=== PATIENT | female | born 2000 | race Two or more races ===

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

== ENCOUNTER 2024-05-12 04:35 | Emergency (ER) | payer OTHER, MEDICAID ==
[~2024-05-12] VITALS: Ht 157.5 cm; Wt 52.2 kg
[2024-05-12 04:50] VITALS: BP 138/82; PULSE 77; RESP 14; TEMP 97.9; O2SAT 99
[2024-05-12] MEDS ORDERED: ACET500T58 PO (05:22)
--- NOTE | 2024-05-12 05:23 | ED.PDOC ---
Back pain HPI HPI Comments 23-YEAR-OLD FEMALE PRESENTS TO ER WITH COMPLAINTS OF BACK PAIN X3 DAYS. PATIENT REPORTS SHE STARTED EXPERIENCING UPPER THORACIC BACK PAIN THREE DAYS AGO S/P "LIFTING HEAVY OBJECTS AT WORK". DENIES ANY TRAUMA/FALLS. SHE RATES HER CURRENT PAIN A 6/10 TO UPPER THORACIC SPINE WITHOUT RADIATION. NOTES SHE'S BEEN TAKING IBUPROFEN FOR HER PAIN WITH SOME RELIEF. PATIENT PRESENTS TO ER AMBULATORY ON ARRIVAL, WITH STEADY GAIT, IN NO DISTRESS. DENIES FEVER ,N/V, NUMBNESS/TINGLING, SHORTNESS OF BREATH, CHEST PAIN, ABDOMINAL PAIN, CHANGES IN URINATION/BM OR ANY FURTHER SYMPTOMS/COMPLAINTS Chief Complaint: Back Pain Time Seen by MD: 05:07 Primary Care Provider: UNKNOWN Reviewed Notes: Nurses Notes, Medications, Allergies Allergies: Coded Allergies: NO KNOWN ALLERGIES (Unverified , 05/12/24) Information Source: Patient Mode of Arrival: Ambulatory Past Medical History PAST MEDICAL HISTORY: Denies Surgical History: Denies all surgeries BRAND ANALYST History: No Pertinent BRAND ANALYST History Family History Family History: Unknown Social History Smoker: Non-Smoker Alcohol: Denies ETOH Use Drugs: Denies Drug Use Lives In: Home Constitutional: denies: chills, diaphoresis, fatigue, fever, malaise, sweats, weakness, others EENTM: denies: blurred vision, double vision, ear bleeding, ear discharge, ear drainage, ear pain, ear ringing, eye pain, eye redness, hearing loss, mouth pain, mouth swelling, nasal discharge, nose bleeding, nose congestion, nose gee n, photophobia, tearing, throat pain, throat swelling, voice changes, others Respiratory: denies: cough, hemoptysis, orthopnea, SOB at rest, shortness of breath, SOB with excertion, stridor, wheezing, others Cardiovascular: denies: chest pain, dizzy spells, diaphoresis, Dyspnea on exertion, edema, irregular heart beat, left arm pain, lightheadedness, palpitations, PND, syncope, others Gastrointestinal: denies: abdomen distended, abdominal pain, blood streaked bowels, constipated, diarrhea, dysphagia, difficulty swallowing, hematemesis, melena, nausea, poor appetite, poor fluid intake, rectal bleeding, rectal pain, vomiting, others Genitourinary: denies: abnormal vagina bleeding, burning, dyspareunia, dysuria, flank pain, frequency, hematuria, incontinence, pain, , vagina discharge, urgency, others Neurological: denies: dizziness, fainting, headache, left sided numbness, left sided weakness, numbness, paresthesia, pre-existing deficit, right sided numbness, right sided weakness, seizure, speech problems, tingling, tremors, weakness, others Musculoskeletal: reports: others ( STATED IN HPI) Integumetry: denies: bruises, change in color, change in hair/nails, dryness, laceration, lesions, lumps, rash, wounds, others Allergic/Immunocompromised: denies: Difficulty Healing, Frequent Infections, Hives, Itching, others Hematologic/Lymphatic: denies: anemia, blood clots, easy bleeding, easy bruising, swollen glands, others Endocrine: denies: excessive hunger, excessive sweating, excessive thirst, excessive urination, flushing, intolerance to cold, intolerance to heat, unexplained weight gain, unexplained weight loss, others Psychiatric: denies: anxiety, bipolar disorder, depression, hopeless, panic disorder, schizophrenia, sleepless, suicidal, others Physical Exam General Appearance: No Apparent Distress HEENT: PERRL/EOMI Neck: Full Range of Motion, Non-Tender, Normal Respiratory: Chest Non-Tender, Lungs Clear, No Accessory Muscle Use, No Respiratory Distress, Normal Breath Sounds Cardiovascular: No Murmur, No Gallop, Regular Rate/Rhythm Breast Exam: Deferred Gastrointestinal: Non Tender, No Pulsatile Mass, Soft Genitalia: Deferred Pelvic: Deferred Rectal: Deferred Extremities: No calf tenderness, Normal capillary refill, Normal range of motion Musculoskeletal : Extremity Location: Back (SLIGHT TTP TO UPPER THORACIC PARASPINALS NOTED. NO TENDERNESS TO SPINE NOTED. GAIT INTACT WITHOUT ABNORMALITY) Neurologic: Alert, release of information specialist II-XII nml as Tested, No Motor Deficits, Normal Affect, Normal Mood, No Sensory Deficits Cerebellar Function: Normal Reflexes: Normal Skin: Dry, Normal Color, Warm Lymphatic: No Adenopathy Was a procedure done? Was a procedure done?: No Sedation Sedation?: No Back Pain Differential Dx Differential Diagnosis: AAA, Fracture, Other (NEUROVASCULAR INJURY) X-Ray, Labs, Meds, VS Vital Signs Date Time Temp Pulse Resp B/P (MAP) Pulse Ox O2 Delivery O2 Flow Rate FiO2 05/12/24 04:50 97.9 77 14 138/82 (100) 99 97.9 PATIENT IN NO DISTRESS DURING ER VISIT/PRIOR TO DISCHARGE ADVISED ON REST/NO STRENUOUS ACTIVITY WORKMAN'S COMP PAPERWORK FILLED OUT ADVISED TO FOLLOW UP WITH PCP AND WORKMAN'S COMP PCP IN 1-2 DAYS PATIENT VERBALIZED UNDERSTANDING AND AGREEABLE WITH CURRENT PLAN OF CARE ADVISED TO RETURN TO ER IMMEDIATELY IF SYMPTOMS WORSEN Time of 1ST Reevaluation: 05:04 Reevaluation 1ST: N/A Patient Education/Counseling: Diagnosis, Treatment, Prognosis, Need For Follow Up Family Education/Counseling: No Family Present Departure 1 Departure Time of Disposition: 05:20 Impression: Primary Impression: Strain of thoracic spine Disposition: 01 HOME / SELF CARE / HOMELESS Condition: Stable e-Prescriptions Acetaminophen (Acetaminophen) 500 Mg Tab 500 MG PO Q4HPRN, #30 TAB 0 Refills Prov: TRUDY HURTADO 05/12/24 Discharged With: Self Critical Care Note Critical Care Time?: No Stability Stability form required: No Heart Score Heart Score: Heart Score Response (Comments) Value History N/A 0 EKG N/A 0 Age N/A 0 Risk Factors N/A 0 Troponin N/A 0 Total 0 TRUDY HURTADO May 12, 2024 05:23
== END 2024-05-12 05:46 | disposition home or self-care (01) ==
LOC: ER 04:35
DX: S29.012A Strain of muscle and tendon of back wall of thorax, initial encounter (principal); X50.1XXA Overexertion from prolonged static or awkward postures, initial encounter; Y93.89 Activity, other specified; Y92.89 Other specified places as the place of occurrence of the external cause; Y99.0 Civilian activity done for income or pay

== ENCOUNTER 2024-05-23 23:50 | Emergency (ER) | payer OTHER, MEDICAID ==
[~2024-05-23] VITALS: Ht 157.5 cm; Wt 52.7 kg
[~2024-05-23 23:50] MED LIST: ACET500T58 PO
[2024-05-24 00:27] VITALS: BP 121/81; PULSE 77; RESP 16; TEMP 99; O2SAT 99
--- NOTE | 2024-05-24 01:06 | DVH ---
EXAM: CT THORACIC SPINE WO CONTRAS HISTORY: injury/pain COMPARISON: None CTDIvol 10.34 mGy, DLP 399.54 mGy*cm. TECHNIQUE: Multiple axial CT images of the spine were obtained using bone algorithm. Axial and coron al reformatting was done. Bone and soft tissue windows were reviewed. FINDINGS: No CT evidence of definite acute fracture, spinal dislocation, or significant appearing acute subluxa tion is seen. The visualized paraspinal soft tissues are grossly unremarkable. Spina bifida occulta of the T11 spinous process. IMPRESSION: 1. No definite CT evidence of acute fracture or dislocation of the bony thoracic spine.
--- NOTE | 2024-05-24 01:21 | ED.PDOC ---
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 WAS SEEN HERE ON MAY 12 FOR THE SAME COMPLAINT. STATES THAT PAIN IS GETTING WORSE. REPORTS NECK AND UPPER BACK PAIN UNRELIEVED BY IBUPROFEN AND ACETAMINOPHEN DENIES NUMBNESS, WEAKNESS, SADDLE ANESTHESIA, LOSS OF BOWEL OR BLADDER CONTROL. Chief Complaint: Back Pain Time Seen by MD: 23:56 Primary Care Provider: UNKNOWN Reviewed Notes: Nurses Notes, Medications, Allergies Allergies: Coded Allergies: NO KNOWN ALLERGIES (Unverified , 05/12/24) Home Meds Active Scripts Acetaminophen (Acetaminophen) 500 Mg Tab, 500 MG PO Q4HPRN, #30 TAB 0 Refills Prov:TRUDY HURTADO 05/12/24 Information Source: Patient Mode of Arrival: Ambulatory Past Medical History PAST MEDICAL HISTORY: Denies Surgical History: Denies all surgeries BLANKET FOLDER History: No Pertinent BLANKET FOLDER History Family History Family History: Unknown Social History Smoker: Non-Smoker Alcohol: Denies ETOH Use Drugs: Denies Drug Use Lives In: Home Constitutional: denies: chills, diaphoresis, fatigue, fever, malaise, sweats, weakness, others EENTM: denies: blurred vision, double vision, ear bleeding, ear discharge, ear drainage, ear pain, ear ringing, eye pain, eye redness, hearing loss, mouth pain, mouth swelling, nasal discharge, nose bleeding, nose congestion, nose pain, photophobia, tearing, throat pain, throat swelling, voice changes, others Respiratory: denies: cough, hemoptysis, orthopnea, SOB at rest, shortness of breath, SOB with excertion, stridor, wheezing, others Cardiovascular: denies: chest pain, dizzy spells, diaphoresis, Dyspnea on exertion, edema, irregular heart beat, left arm pain, lightheadedness, palpitations, PND, syncope, others Gastrointestinal: denies: abdomen distended, abdominal pain, blood streaked bowels, constipated, diarrhea, dysphagia, difficulty swallowing, hematemesis, melena, nausea, poor appetite, poor fluid intake, rectal bleeding, rectal pain, vomiting, others Genitourinary: denies: abnormal vagina bleeding, burning, dyspareunia, dysuria, flank pain, frequency, hematuria, incontinence, pain, , vagina dis charge, urgency, others Neurological: denies: dizziness, fainting, headache, left sided numbness, left sided weakness, numbness, paresthesia, pre-existing deficit, right sided numbness, right sided weakness, seizure, speech problems, tingling, tremors, weakness, others Musculoskeletal: reports: back pain; denies: gout, joint pain, joint swelling, muscle pain, muscle stiffness, neck pain, others Integumetry: denies: bruises, change in color, change in hair/nails, dryness, laceration, lesions, lumps, rash, wounds, others Allergic/Immunocompromised: denies: Difficulty Healing, Frequent Infections, Hives, Itching, others Hematologic/Lymphatic: denies: anemia, blood clots, easy bleeding, easy bruising, swollen glands, others Endocrine: denies: excessive hunger, excessive sweating, excessive thirst, excessive urination, flushing, intolerance to cold, intolerance to heat, unexplained weight gain, unexplained weight loss, others Psychiatric: denies: anxiety, bipolar disorder, depression, hopeless, panic disorder, schizophrenia, sleepless, suicidal, others Physical Exam General Appearance: No Apparent Distress, Normal HEENT: Pharynx Normal Neck: Full Range of Motion, Non-Tender Respiratory: Lungs Clear, No Respiratory Distress, Normal Breath Sounds Cardiovascular: No Murmur, Normal Peripheral Pulses, Regular Rate/Rhythm Breast Exam: Deferred Gastrointestinal: No Organomegaly, Non Tender, Soft Genitalia: Deferred Pelvic: Deferred Rectal: Deferred Extremities: Normal capillary refill, Normal inspection, Normal range of motion, Non-tender, No pedal edema Musculoskeletal : Location: Bilateral Extremity Location: Back (NO TENDERNESS, CREPITUS, OR STEP-OFFS PALPATED THROUGH L1 THROUGH L5. TENDERNESS NOTED ON BILATERAL LOWER BACK MUSCULATURE. NEGATIVE STRAIGHT LEG RAISE BILATERAL POSITIVE PEDAL PULSES) Apperance: Normal Neurologic: Alert, engineering agent II-XII nml as Tested, No Motor Deficits, Normal Affect, Normal Mood, No Sensory Deficits Cerebellar Function: Normal Reflexes: Normal Skin: Dry, Normal Color, Warm Lymphatic: No Adenopathy Was a procedure done? Was a procedure done?: No Back Pain Differential Dx Differential Diagnosis: Fracture, Musculoskeletal Pain X-Ray, Labs, Meds, VS Vital Signs Date Time Temp Pulse Resp B/P (MAP) Pulse Ox O2 Delivery O2 Flow Rate FiO2 05/24/24 00:27 99.0 77 16 121/81 (94) 99 99.0 05/24/24 00:27 77 16 99 Room Air 05/24/24 00:00 99.0 77 16 121/81 (94) 99 99.0 X-Ray, Labs, Meds, VS Comment THORACIC AND LUMBAR X-RAYS SHOW NO OSSEOUS LESIONS ACUTE FRACTURES OR SUBLUXATIONS. PATIENT REFUSED MEDICATION RECOMMEND [id number] TYLENOL OR MOTRIN NEEDED FOR PAIN PER LABELED DOSING INSTRUCTIONS. ADVISED TO FOLLOW UP WITH HER PCP WITHIN 2 DAYS CONSIDER FURTHER IMAGING SUCH MRI OR PHYSICAL THERAPY SYMPTOMS PERSIST. ER RETURN PRECAUTIONS GIVEN PATIENT INDICATES UNDERSTANDING AGREES WITH DISCHARGE PLAN OF CARE. Time of 1ST Reevaluation: 01:18 Reevaluation 1ST: Improved Patient Education/Counseling: Diagnosis, Treatment, Prognosis, Need For Follow Up Family Education/Counseling: No Family Present Departure 1 Departure Time of Disposition: 01:21 Impression: Primary Impression: Musculoskeletal pain Disposition: 01 HOME / SELF CARE / HOMELESS Condition: Stable Discharged With: Self Critical Care Note Critical Care Time?: No Stability Stability form required: CARLOS Ratliff May 24, 2024 01:21
== END 2024-05-24 01:26 | disposition home or self-care (01) ==
LOC: ER 23:50
DX: M79.18 Myalgia, other site (principal); M54.50 Low back pain, unspecified
CPT/HCPCS: 72128